=== PATIENT | male | born 1980 | race African-American/Black ===

== ENCOUNTER 2020-06-25 15:26 | Emergency (ER) | payer BC ==
--- NOTE | 2020-06-25 15:51 | EKG REPORT ---
SEVERITY:- BORDERLINE ECG - SINUS RHYTHM BORDERLINE T WAVE ABNORMALITIES : Confirmed by: Karrie Gaspar MD 25-Jun-2020 15:50:38
--- NOTE | 2020-06-25 16:41 | ER Document Report ---
ED Medical Screen (RME) - General Chief Complaint: Chest Pain Stated Complaint: CHEST PAIN Time Seen by Provider: 06/25/20 16:37 Primary Care Provider: DAVID SMALLS [Primary Care Provider] - Follow up as needed Mode of Arrival: Ambulatory Information source: Patient Notes: 40-year-old male presented to ED for complaint of chest pain x1 to 2 weeks. Denies any cough congestion or fevers. States he has not seen anybody for this chest pain. He has not had any fevers cough or congestion. He states the pain is in his right chest and neck comes and goes but sometimes goes around to the back sometimes it goes to the left side of his chest. He states it feels like a pinch. He states he is not had any shortness of breath and sometimes it does feel sharp. We will get blood urine chest x-ray and EKG and then we will have him seen by another provider I have greeted and performed a rapid initial assessment of this patient. A comprehensive ED assessment and evaluation of the patient, analysis of test results and completion of medical decision making process will be conducted by an additional ED providers. - Related Data Allergies/Adverse Reactions: No Known Allergies Allergy (Verified 06/25/20 16:36) Physical Exam - Vital signs Vitals: Temp Pulse Resp BP Pulse Ox 98.1 F 73 18 145/80 H 100 06/25/20 16:17 06/25/20 16:17 06/25/20 16:17 06/25/20 16:17 06/25/20 16:17 Course - Vital Signs Vital signs: Temp Pulse Resp BP Pulse Ox 98.1 F 73 18 145/80 H 100 06/25/20 16:17 06/25/20 16:17 06/25/20 16:17 06/25/20 16:17 06/25/20 16:17 Doctor's Discharge - Discharge Referrals: DAVID SMALLS [Primary Care Provider] - Follow up as needed
[2020-06-25 17:58] LABS: ABSOLUTE EOSINOPHILS # (AUTO) 0.3 10^3/uL (0.0-0.6); ABSOLUTE LYMPHOCYTES (AUTO) 3.2 10^3/uL (0.5-4.7); ABSOLUTE MONOCYTES (AUTO) 0.3 10^3/uL (0.1-1.4); ABSOLUTE NEUT (AUTO) 3.2 10^3/uL (1.7-8.2); BASOPHILS % (AUTO) 0.5 % (0-2); EOSINOPHILS % (AUTO) 4.4 % (0-6); HEMATOCRIT 45.1 % (37.9-51.0); HEMOGLOBIN 15.5 g/dL (13.5-17.0); LYMPHOCYTES % (AUTO) 45.4 % (13-45); MEAN CORPUSCULAR HEMOGLOBIN 34.4 pg (27.0-33.4); MEAN CORPUSCULAR HGB CONC 34.2 g/dL (32.0-36.0); MEAN CORPUSCULAR VOLUME 101 fl (80-97); MONOCYTES % (AUTO) 4.4 % (3-13); PLATELET COUNT 288 10^3/uL (150-450); RED BLOOD COUNT 4.49 10^6/uL (4.35-5.55); SEGMENTED NEUTROPHILS % (AUTO) 45.3 % (42-78); TOTAL CELLS COUNTED % (AUTO) 100 %; WHITE BLOOD COUNT 7.1 10^3/uL (4.0-10.5)
[2020-06-25 18:02] LABS: APPEARANCE,URINE CLEAR; BILIRUBIN,URINE NEGATIVE (NEGATIVE); COLOR,URINE YELLOW; GLUCOSE, URINE NEGATIVE (NEGATIVE); KETONES,URINE NEGATIVE (NEGATIVE); LEUKOCYTE ESTERASE,URINE NEGATIVE (NEGATIVE); NITRITE,URINE NEGATIVE (NEGATIVE); PROTEIN,URINE NEGATIVE (NEGATIVE); URINE SPECIFIC GRAVITY 1.026
--- NOTE | 2020-06-25 18:07 | RADIOLOGY REPORT (SQ) ---
EXAM DESCRIPTION: CHEST 2 VIEWS IMAGES COMPLETED DATE/TIME: 06/25/2020 5:14 pm REASON FOR STUDY: Chest pain intermittently for x2 weeks COMPARISON: None. EXAM PARAMETERS: NUMBER OF VIEWS: two views TECHNIQUE: Digital Frontal and Lateral radiographic views of the chest acquired. RADIATION DOSE: NA LIMITATIONS: none FINDINGS: LUNGS AND PLEURA: No opacities, masses or pneumothorax. No pleural effusion. MEDIASTINUM AND HILAR STRUCTURES: No masses or contour abnormalities. HEART AND VASCULAR STRUCTURES: Heart normal size. No evidence for failure. BONES: No acute findings. HARDWARE: None in the chest. OTHER: No other significant finding. IMPRESSION: NO ACUTE RADIOGRAPHIC FINDING IN THE CHEST. TECHNICAL DOCUMENTATION: JOB ID: [id number] 2010 [employer]- All Rights Reserved Reading location - IP/workstation name: [email or web address]
[2020-06-25 18:19] LABS: ALBUMIN 3.8 g/dL (3.5-5.0); ALKALINE PHOSPHATASE 83 U/L (38-126); ASPARTATE AMINO TRANSFERASE 29 U/L (17-59); BILIRUBIN,DIRECT 0.1 mg/dL (0.0-0.4); BILIRUBIN,TOTAL 0.5 mg/dL (0.2-1.3); BLOOD UREA NITROGEN 11 mg/dL (7-20); CALCIUM 9.3 mg/dL (8.4-10.2); GLUCOSE 100 mg/dL (75-110); POTASSIUM 4.7 mmol/L (3.6-5.0); TOTAL PROTEIN 6.9 g/dL (6.3-8.2)
[2020-06-25 18:24] LABS: ANION GAP 6 (5-19); CARBON DIOXIDE 31 mmol/L (22-30); CHLORIDE 104 mmol/L (98-107)
--- NOTE | 2020-06-26 00:15 | ER Document Report ---
ED Cardiac - General Chief Complaint: Chest Pain Stated Complaint: CHEST PAIN Time Seen by Provider: 06/25/20 16:37 Primary Care Provider: DAVID SMALLS [NO LOCAL MD] - Follow up as needed Mode of Arrival: Ambulatory - [facility] Notes: Patient is a 40-year-old male with a medical history of glaucoma who presents with chest pain. Patient states he has had pain for about 1 to 2 weeks. He describes it as intermittent sharp pain that lasts for several minutes and then resolves. It is mildly pleuritic. Patient states he currently does not have any pain. It is located over his right chest when he does get it. He thought it was gas pain so he took Gas-X. He denies any nausea or vomiting. No diarrhea. No fevers or chills. No cough or cold symptoms. He denies any cardiac history. He has never had any blood clots. He does not have hypertension or high cholesterol. He states that he drives several hours to work every day. - Related Data Allergies/Adverse Reactions: seafood Allergy (Uncoded 06/26/20 00:18) Past Medical History - General Information source: Patient - Social History Smoking Status: Never Smoker Family History: Reviewed & Not Pertinent Review of Systems - Review of Systems Notes: CONSTITUTIONAL: No fever, fatigue or weight loss. SKIN: No rash. HENT: No congestion, ear pain, or sore throat. EYES: No recent vision problems or eye pain. CARDIOVASCULAR: No edema. Positive for chest pain. RESPIRATORY: No cough, shortness of breath, congestion, or wheezing. GASTROINTESTINAL: No abdominal pain, nausea, vomiting, bloody stools or diarrhea. GENITOURINARY: No dysuria. MUSCULOSKELETAL: No joint pain or swelling. LYMPHATIC: No swollen glands. NEUROLOGIC: No seizures. No headache, focal weakness or sensory changes. HEMATOLOGIC: No unusual bruising or bleeding. PSYCHIATRIC: No depression or anxiety. Physical Exam - Vital signs Vitals: Temp Pulse Resp BP Pulse Ox 98.1 F 73 18 145/80 H 100 06/25/20 16:17 06/25/20 16:17 06/25/20 16:17 06/25/20 16:17 06/25/20 16:17 - General General appearance: Appears well Notes: VITAL SIGNS: Within normal limits. GENERAL: No acute distress, non-toxic appearance. HEAD: Normal with no signs of head trauma. EYES: Conjunctiva normal, no discharge. Glaucoma implant to left eye. EARS: Hearing grossly intact. NECK: Normal range of motion, no tenderness, supple, no lymphadenopathy, No adenopathy, no JVD. CHEST: Clear breath sounds bilaterally. No wheezes, rales, or rhonchi. CARDIAC: Regular rate and rhythm. S1 and S2, without murmurs, gallops, or rubs. Chest pain non reproducible, no rashes. VASCULAR: No Edema. Peripheral pulses normal and equal in all extremities. ABDOMEN: Normal and soft with no tenderness, no masses or pulsatile masses. GENITOURINARY: Normal, No tenderness LYMPATHTIC: No lymphadenopathy noted. MUSCULOSKELETAL: Good range of motion of all major joints. Extremities without clubbing, cyanosis or edema. NEUROLOGICAL: Alert and oriented x 3. No focal sensory or strength deficits. Speech normal. Follows commands appropriately. PSYCHIATRIC: Normal Affect, judgement and mood. SKIN: Normal appearance with no rashes or lesions. Course - Re-evaluation Re-evalutation: 06/26/20 05:23 Heart Score is 1. Patient appears well on exam. He is denying any chest pain. Patient's work-up is reassuring. His troponin and D-dimer are negative. I have low suspicion for PE. Patient states he does do heavy lifting at work, this could be costochondritis. I discussed all results with the patient. He was instructed to take ibuprofen and Tylenol at home. He was told to follow-up with his PCP. Patient was given strict return precautions. As I was going over discharge instructions with him, he did state that since he has been in the room, he has had some tearing to his right eye and thinks maybe he got some dust in it earlier today when sweeping. The conjunctiva does appear to be slightly erythemic from him rubbing the eye. I offered to numb the eye and do an evaluation to look for corneal abrasion and foreign body but he declined. He states he has an eye doctor that he can call tomorrow. He did ask if I could flush it out. I flushed out the eye with normal saline. He states he feels better. Patient continues to decline further evaluation. 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 06/26/20 05:30 - Vital Signs Vital signs: Temp Pulse Resp BP Pulse Ox 98.0 F 65 17 134/88 H 98 06/26/20 02:26 06/26/20 00:28 06/26/20 02:26 06/26/20 02:26 06/26/20 02:26 - Laboratory Result Diagrams: 06/25/20 17:36 06/25/20 17:36 Laboratory results interpreted by me: 06/25/20 06/25/20 06/25/20 17:36 17:36 17:36 MCV 101 H MCH 34.4 H Lymph % (Auto) 45.4 H Carbon Dioxide 31 H Urine Urobilinogen 4.0 H - Diagnostic Test Radiology reviewed: Image reviewed, Reports reviewed - EKG Interpretation by Me EKG shows normal: Sinus rhythm Rate: Normal When compared to previous EKG there are: Previous EKG unavailable Additional EKG results interpreted by me: 06/26/20 00:14 Sinus rhythm at a rate of 80. QTc 388. No acute ST changes. No previous EKG available for comparison. Discharge - Discharge Clinical Impression: Chest pain Qualifiers: Chest pain type: unspecified Qualified Code(s): R07.9 - Chest pain, unspecified Condition: Stable Disposition: HOME, SELF-CARE Instructions: Chest Pain of Unclear Cause ([facility]) Additional Instructions: Your work-up today is reassuring. Follow-up with your family doctor. Please return to the ER for any return of chest pain, shortness of breath, any other concerning symptoms. Referrals: LOCALMD,NO [NO LOCAL MD] - Follow up as needed
[2020-06-26] MEDS ORDERED: ASPIRIN 325 MG TABLET PO ONE (02:07)
[2020-06-26 02:30] VITALS: BP 134/88
== END 2020-06-26 02:32 | disposition home or self-care (01) ==
LOC: ER 15:26
DX: R07.81 Pleurodynia (principal); H57.89 Other specified disorders of eye and adnexa; H40.9 Unspecified glaucoma; Z91.013 Allergy to seafood
CPT/HCPCS: 36415; 71046; 80053; 81001; 83690; 83735; 84484; 85025; 85379; 93005; 93010; 99285